=== PATIENT | female | born 1950 | race Caucasian/White ===

== ENCOUNTER → 2017-10-08 | Day surgery (SDC) | payer MEDICARE ==
[~2017-10-08] MED LIST: PROPOFOL 200 MG/20 ML AMP IV ONE
--- NOTE | 2017-10-08 13:30 | GIPROC ---
[facility] [address] [place], [id number] EGD PROCEDURE REPORT EXAM DATE: 10/08/2017 PATIENT NAME: Mell Bearden MR #: [id number] BIRTHDATE: 1950 ATTENDING: Marlon Beltran MD ORDER #: [id number] [employer]: Artem Gusman RN STATUS: outpatient INDICATIONS: The patient is a 67 yr old female here for an EGD due to history of esophageal reflux and Preoperative assessment PROCEDURE PERFORMED: EGD w/ biopsy MEDICATIONS: None, Per Anesthesia, None, and Per Anesthesia. TOPICAL ANESTHETIC: CONSENT: The patient understands the risks and benefits of the procedure and understands that these risks include, but are not limited to: sedation, allergic reaction, infection, perforation and/or bleeding. Alternative means of evaluation and treatment include, among others: physical exam, x-rays, and/or surgical intervention. The patient elects to proceed with this endoscopic procedure. medical equipment was checked for proper function. Hand hygiene and appropriate measures for infection prevention was taken. After the risks, benefits and alternatives of the procedure were thoroughly explained, Informed consent was verified, confirmed and timeout was successfully executed by the treatment team. The patient was anesthetized with topical anesthesia and the EC-[id number] ([id number]) endoscope was introduced through the mouth and advanced to the second portion of the duodenum. Retroflexed views revealed no abnormalities The gastroscope was then slowly withdrawn and removed. STOMACH: There was erythematous moderate and erosive gastritis in the gastric antrum. Multiple biopsies were performed. The endoscopy was otherwise normal. ADVERSE EVENTS: There were no complications. IMPRESSIONS: 1. There was erythematous gastritis in the gastric antrum; multiple biopsies were performed 2. Normal endoscopy otherwise 3. Retroflexed views revealed no abnormalities RECOMMENDATIONS: 1. Await biopsy results. Biopsy results will not be ready for 7-10 days. If you don't hear from us in two weeks, call our office for biopsy results. 2. Anti-reflux regimen 3. Follow-up: GI clinic 3 week(s) 4. Protonix 40mg Q AM PATIENT CONDITION: stable DISPOSITION: Home REPEAT EXAM: Marlon Beltran MD eSigned: Marlon Beltran MD 10/08/2017 1:29 PM cc: Ag Cabral [facility] Janina
== END | disposition home or self-care (01) ==
LOC: ESDC 09:52
PROVIDERS: ATTEND Internal Medicine Gastroenterology
DX: K21.9 Gastro-esophageal reflux disease without esophagitis (principal); K29.70 Gastritis, unspecified, without bleeding
CPT/HCPCS: 00740; 43239; 88305; J3010; 88312

== ENCOUNTER 2018-03-02 05:33 | Inpatient (IN) | payer MEDICARE ==
[2018-03-02] MEDS ORDERED: SODIUM CHLORID 0.9% 500 ML IV (06:45)
[2018-03-02] MEDS ORDERED: ceFAZolin 2 GM PREMIX 50 ML IV (06:45)
[2018-03-02] MEDS: SCOPOLAMINE 1.5 MG PATCH T-DERMAL (07:25)
[2018-03-02] MEDS: APREPITANT 40 MG CAP PO (07:25)
[2018-03-02] MEDS: LACTATED RINGER'S 1000 ML IV (07:26)
[2018-03-02] MEDS: CHLORHEXIDINE GLUCONATE 2 % 1 PACK (2 CLOTHS) TOPICAL (07:26)
[2018-03-02] MEDS: METOPROLOL TARTRATE 25 MG TAB PO (07:26)
[2018-03-02] MEDS: POVIDONE IODINE 5% (ANTISEPSIS KIT) 4 APPLICATIONS EACH NARE (07:26)
[2018-03-02] MEDS: ONDANSETRON HCL 4 MG/2 ML VIAL IV PUSH (07:27)
[2018-03-02] MEDS: ACETAMINOPHEN 1000 MG/100 ML 100 ML IV ×3 (10:25→21:23)
[2018-03-02] MEDS: BUPIVACAINE/EPINEPHRINE 0.5% PF 30 ML VIAL (11:19)
[2018-03-02] MEDS: NEOSTIGMINE 5 MG/5 ML SYRINGE IV PUSH (12:00)
[2018-03-02] MEDS: GLYCOPYRROLATE 1 MG/5 ML SYRINGE IV PUSH (12:00)
[2018-03-02] MEDS: ROCURONIUM INJ 50 MG/5 ML SYRINGE IV PUSH (12:00)
[2018-03-02] MEDS: ONDANSETRON HCL 4 MG/2 ML VIAL IV (12:00)
[2018-03-02] MEDS: ePHEDrine/NS 25 MG/5 ML SYRINGE IV (12:00)
[2018-03-02] MEDS: LACTATED RINGER'S 1000 ML INJ 1,000 ML IV (12:00)
[2018-03-02] MEDS: LIDOCAINE HCL 1% PF 5 ML SYRINGE OTHER (12:00)
[2018-03-02] MEDS: PHENYLEPH/NS 1000 MCG/10 ML SYR IV (12:00)
[2018-03-02] MEDS: PROPOFOL 200 MG/20 ML AMP IV (12:00)
[2018-03-02] MEDS: DEXAMETHASONE SOD PHOS 4 MG/ML VIAL IV (12:00)
[2018-03-02] MEDS: Post-op Orders (for Pharmacy) OTHER (13:00)
[2018-03-02] MEDS ORDERED: NALOXONE HCL 0.4 MG/ML AMP IV PUSH (13:00)
[2018-03-02] MEDS ORDERED: ONDANSETRON HCL 4 MG/2 ML VIAL IV PUSH (13:00)
[2018-03-02] MEDS ORDERED: ENALAPRILAT 1.25 MG/ML VIAL IV PUSH (13:00)
[2018-03-02] MEDS ORDERED: ACETAMINOPHEN 325MG/HYDROcodone 7.5MG/15ML UDC PO (13:00)
[2018-03-02] MEDS ORDERED: diphenhydrAMINE HCL 50 MG/ML VIAL IV PUSH (13:00)
[2018-03-02] MEDS ORDERED: SODIUM CHLORIDE 0.9% FLUSH 10 ML FLUSH IV FLUSH (13:00)
[2018-03-02] MEDS ORDERED: diphenhydrAMINE HCL ELIXIR 12.5 MG/5 ML CUP PO (13:00)
[2018-03-02] MEDS ORDERED: DO NOT ADM ANY ANTICOAGULANT DRUGS (13:17)
[2018-03-02] MEDS: *morphine SULFATE 4 MG/ML PERIprocedure ONLY (13:48)
[2018-03-02] MEDS: *PROMETHAZINE 25 MG/ML VIAL PERIprocedural use ONLY (13:52)
[2018-03-02] MEDS: MORPHINE SULFATE 30 MG/30 ML PCA IV (13:56)
[2018-03-02] MEDS: D5-1/2 NS + KCL 20 MEQ INJ 1,000 ML IV ×2 (13:56→21:22)
[2018-03-02] MEDS: METOCLOPRAMIDE HCL 10 MG/2 ML VIAL IV PUSH ×2 (13:56→21:21)
[2018-03-02] MEDS: PCA - TOTAL MG MORPHINE DELIVERED PER SHIFT ×2 (14:00→21:23)
[2018-03-02] MEDS: metroNIDAZOLE 500 MG INJ 100 ML IV ×2 (14:00→21:22)
[2018-03-02] MEDS: ENOXAPARIN SODIUM 40 MG/0.4 ML SYRINGE SQ (16:50)
[2018-03-02] MEDS: RESP: ALBUTEROL 2.5 MG/3 ML NEB (SCH) INH (20:00)
[2018-03-02] MEDS: SODIUM CHLORIDE 0.9% FLUSH 10 ML FLUSH IV FLUSH (21:21)
[2018-03-02] MEDS ORDERED: PILL SPLITTER OTHER (22:00)
[2018-03-03] MEDS: RESP: ALBUTEROL 2.5 MG/3 ML NEB (SCH) INH ×5 (00:35→16:00)
[2018-03-03] MEDS: METOCLOPRAMIDE HCL 10 MG/2 ML VIAL IV PUSH ×2 (02:01→08:00)
[2018-03-03 05:15] LABS: BASOPHIL % 0.3 % (0.0-2.0); HEMATOCRIT 41.5 % (35.0-46.0); HEMO FLAGS DIFF FINAL; LYMPH % 3.7 % (9.0-44.0); LYMPHOCYTE # 0.6 TH/MM3 (1.0-4.8); MEAN CELL VOLUME 85.7 FL (80.0-100.0); MEAN CORPUSCULAR HEMOGLOBIN 28.9 PG (27.0-34.0); MEAN CORPUSCULAR HGB CONC 33.7 % (32.0-36.0); MEAN PLATELET VOLUME 8.1 FL (7.0-11.0); MONO % 5.3 % (0.0-8.0); MONOCYTE # 0.9 TH/MM3 (0-0.9); NEUT % 90.7 % (16.0-70.0); PLATELET COUNT 254 TH/MM3 (150-450); RED BLOOD COUNT 4.84 MIL/MM3 (4.00-5.30); RED CELL DISTRIBUTION WIDTH 14.3 % (11.6-17.2); WHITE BLOOD COUNT 16.5 TH/MM3 (4.0-11.0)
[2018-03-03 05:43] LABS: ANION GAP 8 MEQ/L (5-15); BICARBONATE 27.1 MEQ/L (21.0-32.0); BLOOD UREA NITROGEN 15 MG/DL (7-18); CALCIUM 9.2 MG/DL (8.5-10.1); CHLORIDE 105 MEQ/L (98-107); GLOMERULAR FILTRATION RATE 55 ML/MIN (>89); GLUCOSE,RANDOM 158 MG/DL (74-106); MAGNESIUM 1.9 MG/DL (1.5-2.5); POTASSIUM 4.1 MEQ/L (3.5-5.1); SODIUM (NA) 140 MEQ/L (136-145)
[2018-03-03] MEDS: ACETAMINOPHEN 1000 MG/100 ML 100 ML IV ×2 (05:45→10:00)
[2018-03-03] MEDS: PCA - TOTAL MG MORPHINE DELIVERED PER SHIFT (05:45)
[2018-03-03] MEDS: metroNIDAZOLE 500 MG INJ 100 ML IV (05:46)
[2018-03-03] MEDS: D5-1/2 NS + KCL 20 MEQ INJ 1,000 ML IV ×2 (05:46→13:37)
[2018-03-03] MEDS: PANTOPRAZOLE SOD 40 MG DELAYED RELEASE TAB PO (08:40)
[2018-03-03] MEDS: METOPROLOL TARTRATE 25 MG TAB PO (08:40)
[2018-03-03] MEDS: LOSARTAN 50 MG TAB PO (08:40)
[2018-03-03] MEDS: SODIUM CHLORIDE 0.9% FLUSH 10 ML FLUSH IV FLUSH (08:40)
[2018-03-03] MEDS ORDERED: METOPROLOL TARTRATE 25 MG TAB PO (09:00)
[2018-03-03] MEDS: ACETAMINOPHEN 325MG/HYDROcodone 7.5MG/15ML UDC PO ×2 (09:46→17:44)
[2018-03-03] MEDS ORDERED: METOCLOPRAMIDE HCL 10 MG/2 ML VIAL IV PUSH (13:00)
[2018-03-03] MEDS: SIMETHICONE 80 MG CHEWABLE TAB CHEW (13:18)
[2018-03-03] MEDS: ENOXAPARIN SODIUM 40 MG/0.4 ML SYRINGE SQ (16:19)
== END 2018-03-03 18:20 | disposition home or self-care (01) | DRG 621 ==
LOC: HSDI 05:33 → N07B 15:57
PROC: 0D164ZA Bypass Stomach to Jejunum, Percutaneous Endoscopic Approach (ICD-10-PCS; principal; 2018-03-02 10:49)
PROC: 0BQT4ZZ Repair Diaphragm, Percutaneous Endoscopic Approach (ICD-10-PCS; 2018-03-02 10:49)
PROC: 0D1A4ZA Bypass Jejunum to Jejunum, Percutaneous Endoscopic Approach (ICD-10-PCS; 2018-03-02 10:49)
DX: E66.01 Morbid (severe) obesity due to excess calories (principal); Z68.42 Body mass index [BMI] 45.0-49.9, adult; K76.0 Fatty (change of) liver, not elsewhere classified; I10 Essential (primary) hypertension; K21.9 Gastro-esophageal reflux disease without esophagitis; I70.0 Atherosclerosis of aorta; G47.30 Sleep apnea, unspecified; K44.9 Diaphragmatic hernia without obstruction or gangrene; Z96.659 Presence of unspecified artificial knee joint; Z87.891 Personal history of nicotine dependence
CPT/HCPCS: 80048; 83735; 85025; 94150; 94664